=== PATIENT | male | born 1960 | race African-American/Black ===

== ENCOUNTER 2022-02-08 13:24 | Inpatient (IN) | payer MEDICARE, MEDICAID ==
[2022-02-08 14:51] VITALS: BMI 21.0
[2022-02-08] MEDS ORDERED: FLU VACC QS2022-23(6MOS UP)/PF 60 MCG/0.5 ML SYRINGE IM ONE (15:15)
[2022-02-08] MEDS ORDERED: Ondansetron ODT 4 MG TAB PO PRN (16:32)
[2022-02-08] MEDS ORDERED: Lorazepam 2 MG/ML VIAL IM PRN (16:32)
[2022-02-08] MEDS ORDERED: Multivit, Therapeutic 1 TAB PO SCH (17:00)
[2022-02-08] MEDS ORDERED: Folic Acid 1 MG TAB PO SCH (17:00)
[2022-02-08] MEDS ORDERED: Potassium Chloride 20 MEQ in Premix Bag 1 BAG IVPB SCH (17:15)
[2022-02-08] MEDS: Thiamine HCl 200 MG/2 ML VIAL SLOW IVP SCH (17:49)
[2022-02-08 18:24] LABS: Anion Gap 15 mmol/L (10-20); BUN (Urea Nitrogen) 25 mg/dL (8.4-25.7); Calc. Creatinine Clearance 99 mL/min (70-130); Calcium 8.2 mg/dL (7.8-10.44); Carbon Dioxide 27 mmol/L (22-29); Chloride 95 mmol/L (98-107); Estimated GFR 103; Glucose 103 mg/dL (70-105); Potassium 3.1 mmol/L (3.5-5.1); Sodium 134 mmol/L (136-145)
[2022-02-08] MEDS ORDERED: Potassium Chloride 20 MEQ TAB PO SCH ×2 (19:00→23:15)
[2022-02-08 19:07] LABS: Hemoglobin 5.3 g/dL (14.0-18.0); Platelet Count 119 thou/uL (130-400)
[2022-02-08 19:50] LABS: Troponin I 0.046 ng/mL (< 0.028)
[2022-02-08] MEDS: Lactated Ringer's 1,000 ML IV SCH (23:37)
[2022-02-09] MEDS ORDERED: Ibuprofen 200 MG TAB PO PRN (00:40)
[2022-02-09] MEDS ORDERED: Famotidine 20 MG TAB PO SCH (00:45)
[2022-02-09 05:00] LABS: ALT (SGPT) 31 U/L (8-55); AST (SGOT) 109 U/L (5-34); Albumin 2.5 g/dL (3.5-5.0); Alkaline Phosphatase 87 U/L (40-110); Anion Gap 12 mmol/L (10-20); BUN (Urea Nitrogen) 21 mg/dL (8.4-25.7); Bilirubin, Total 13.9 mg/dL (0.2-1.2); Calc. Creatinine Clearance 106 mL/min (70-130); Carbon Dioxide 27 mmol/L (22-29); Chloride 97 mmol/L (98-107); Estimated GFR 105; Globulin 4.9 g/dL (2.4-3.5); Glucose 97 mg/dL (70-105); Potassium 3.6 mmol/L (3.5-5.1); Protein, Total 7.4 g/dL (6.0-8.3); Sodium 132 mmol/L (136-145)
[2022-02-09 05:27] LABS: Band 10 % (5-11); Eosinophils 2 % (0-10); Hemoglobin 6.8 g/dL (14.0-18.0); Hypochromia SLIGHT = 6-15 cells (100X) (0-5/hpf); Lymphocytes 19 % (21-51); MDiff Complete? YES; Mean Corpuscular HGB CONC 32.4 g/dL (32.0-36.0); Mean Corpuscular Hemoglobin 28.7 pg (27.0-31.0); Mean Corpuscular Volume 88.5 fL (78.0-98.0); Mean Platelet Volume 8.2 fL (7.4-10.4); Monocytes 14 % (0-10); Neutrophil 55 % (42-75); Nucleated RBC 2 % (0); Platelet Count 96 thou/uL (130-400); Platelet Morphology Comment Appears Adequate; Polychromasia SLIGHT = 2-3 cells (100X) (0-2/hpf); RBC Distribution Width 17.4 % (11.5-14.5); Red Blood Cell (RBC) Count 2.36 mill/uL (4.70-6.10); Target Cells SLIGHT = 2-5 cells (100X) (0-1/hpf); White Blood Cell (WBC) Count 9.3 thou/uL (4.8-10.8)
[2022-02-09 08:34] LABS: Hemoglobin 7.2 g/dL (14.0-18.0); Platelet Count 98 thou/uL (130-400)
[2022-02-09] MEDS: Folic Acid 1 MG TAB PO SCH (09:51)
[2022-02-09] MEDS: Famotidine 20 MG TAB PO SCH ×2 (09:51→21:06)
[2022-02-09] MEDS: Multivit, Therapeutic 1 TAB PO SCH (09:51)
[2022-02-09] MEDS: Lactated Ringer's 1,000 ML IV SCH ×2 (09:53→17:06)
[2022-02-09 13:06] LABS: INR-International Normal Ratio 1.6; PTT 31.8 sec (22.9-36.1); Prothrombin Time 19.7 sec (12.0-14.7)
[2022-02-09] MEDS: Thiamine HCl 200 MG/2 ML VIAL SLOW IVP SCH (17:06)
[2022-02-09 21:05] LABS: Hemoglobin 7.6 g/dL (14.0-18.0)
[2022-02-09] MEDS ORDERED: Acetaminophen 325 MG TAB PO SCH (22:30)
[2022-02-10 05:37] LABS: Band 2 % (5-11); Eosinophils 6 % (0-10); Hemoglobin 7.7 g/dL (14.0-18.0); Lymphocytes 22 % (21-51); MDiff Complete? YES; Mean Corpuscular HGB CONC 32.6 g/dL (32.0-36.0); Mean Corpuscular Hemoglobin 28.6 pg (27.0-31.0); Mean Corpuscular Volume 87.5 fL (78.0-98.0); Mean Platelet Volume 7.7 fL (7.4-10.4); Monocytes 2 % (0-10); Neutrophil 67 % (42-75); Nucleated RBC 10 % (0); Ovalocytes SLIGHT = 2-5 cells (100X) (0-1/hpf); Platelet Count 98 thou/uL (130-400); Platelet Morphology Comment Appears Decreased; Polychromasia SLIGHT = 2-3 cells (100X) (0-2/hpf); RBC Distribution Width 17.5 % (11.5-14.5); Red Blood Cell (RBC) Count 2.71 mill/uL (4.70-6.10); Target Cells MODERATE= 6-15 cells (100X) (0-1/hpf); White Blood Cell (WBC) Count 9.2 thou/uL (4.8-10.8)
[2022-02-10] MEDS ORDERED: Acetaminophen 325 MG TAB PO SCH (06:00)
[2022-02-10 07:06] LABS: INR-International Normal Ratio 1.6; PTT 33.5 sec (22.9-36.1); Prothrombin Time 19.2 sec (12.0-14.7)
[2022-02-10 07:53] LABS: ALT (SGPT) 39 U/L (8-55); AST (SGOT) 125 U/L (5-34); Albumin 2.3 g/dL (3.5-5.0); Alkaline Phosphatase 98 U/L (40-110); Anion Gap 11 mmol/L (10-20); BUN (Urea Nitrogen) 13 mg/dL (8.4-25.7); Bilirubin, Direct 6.3 mg/dL (0.1-0.3); Bilirubin, Total 12.1 mg/dL (0.2-1.2); Calc. Creatinine Clearance 117 mL/min (70-130); Calcium 7.8 mg/dL (7.8-10.44); Carbon Dioxide 26 mmol/L (22-29); Chloride 97 mmol/L (98-107); Estimated GFR 108; Globulin 4.8 g/dL (2.4-3.5); Glucose 107 mg/dL (70-105); Protein, Total 7.1 g/dL (6.0-8.3); Sodium 131 mmol/L (136-145)
[2022-02-10] MEDS: Folic Acid 1 MG TAB PO SCH (08:43)
[2022-02-10] MEDS: Famotidine 20 MG TAB PO SCH ×2 (08:43→21:45)
[2022-02-10] MEDS: Multivit, Therapeutic 1 TAB PO SCH (08:43)
[2022-02-10] MEDS ORDERED: Potassium Chloride 20 MEQ TAB PO SCH (10:00)
[2022-02-10] MEDS: traMADol HCl 50 MG TAB PO PRN (11:53)
[2022-02-10] MEDS ORDERED: Morphine 4 MG/ML VIAL SLOW IVP PRN (13:55)
[2022-02-10] MEDS: Thiamine HCl 200 MG/2 ML VIAL SLOW IVP SCH (18:20)
[2022-02-11 07:19] LABS: Hemoglobin 7.2 g/dL (14.0-18.0); Mean Corpuscular HGB CONC 32.5 g/dL (32.0-36.0); Mean Corpuscular Hemoglobin 29.2 pg (27.0-31.0); Mean Platelet Volume 7.8 fL (7.4-10.4); Platelet Count 151 thou/uL (130-400); RBC Distribution Width 18.9 % (11.5-14.5); Red Blood Cell (RBC) Count 2.47 mill/uL (4.70-6.10); White Blood Cell (WBC) Count 13.1 thou/uL (4.8-10.8)
[2022-02-11 07:29] LABS: ALT (SGPT) 39 U/L (8-55); AST (SGOT) 120 U/L (5-34); Albumin 2.4 g/dL (3.5-5.0); Alkaline Phosphatase 111 U/L (40-110); Anion Gap 11 mmol/L (10-20); BUN (Urea Nitrogen) 9 mg/dL (8.4-25.7); Bilirubin, Direct 6.8 mg/dL (0.1-0.3); Bilirubin, Total 12.2 mg/dL (0.2-1.2); Calc. Creatinine Clearance 119 mL/min (70-130); Calcium 8.2 mg/dL (7.8-10.44); Carbon Dioxide 26 mmol/L (22-29); Chloride 95 mmol/L (98-107); Estimated GFR 109; Globulin 4.8 g/dL (2.4-3.5); Glucose 103 mg/dL (70-105); Protein, Total 7.2 g/dL (6.0-8.3); Sodium 129 mmol/L (136-145)
[2022-02-11 07:38] LABS: INR-International Normal Ratio 1.8; Prothrombin Time 21.4 sec (12.0-14.7)
[2022-02-11] MEDS: Famotidine 20 MG TAB PO SCH ×2 (08:09→20:47)
[2022-02-11] MEDS: Multivit, Therapeutic 1 TAB PO SCH (08:10)
[2022-02-11] MEDS: Folic Acid 1 MG TAB PO SCH (08:10)
[2022-02-11] MEDS: traMADol HCl 50 MG TAB PO PRN (08:13)
[2022-02-11 08:20] LABS: Band 7 % (5-11); Eosinophils 3 % (0-10); Lymphocytes 13 % (21-51); MDiff Complete? YES; Monocytes 3 % (0-10); Neutrophil 73 % (42-75); Platelet Morphology Comment Appears Adequate; Polychromasia MODERATE = 3-4 cells (100X) (0-2/hpf); Reactive Lymphocytes 1 % (0-10); Schistocytes SLIGHT = 2-5 cells (100X) (0-1/hpf); Target Cells MODERATE= 6-15 cells (100X) (0-1/hpf)
[2022-02-11 09:36] LABS: PTT 32.6 sec (22.9-36.1)
[2022-02-11 10:26] LABS: Magnesium 1.7 mg/dL (1.6-2.6)
[2022-02-11] MEDS ORDERED: Sodium Chloride 0.9% 1,000 ML IV SCH (11:45)
[2022-02-11 15:07] LABS: Hemoglobin 7.5 g/dL (14.0-18.0); Platelet Count 146 thou/uL (130-400)
[2022-02-11 15:14] LABS: Anion Gap 7 mmol/L (10-20); BUN (Urea Nitrogen) 10 mg/dL (8.4-25.7); Calc. Creatinine Clearance 109 mL/min (70-130); Calcium 8.5 mg/dL (7.8-10.44); Carbon Dioxide 28 mmol/L (22-29); Chloride 97 mmol/L (98-107); Estimated GFR 106; Glucose 106 mg/dL (70-105); Potassium 3.3 mmol/L (3.5-5.1); Sodium 129 mmol/L (136-145)
[2022-02-11] MEDS ORDERED: Phytonadione 5 MG TAB PO SCH (16:30)
[2022-02-11] MEDS ORDERED: Thiamine 100 MG TAB PO SCH (17:00)
[2022-02-11] MEDS ORDERED: Potassium Chloride 20 MEQ TAB PO SCH (17:00)
[2022-02-11] MEDS ORDERED: Magnesium 2 GM/50 ML(in water) 2 GM in Premix Bag 1 BAG IVPB SCH (17:00)
[2022-02-11 20:42] VITALS: BP 161/93; TEMP 98
[2022-02-12 06:50] LABS: Hemoglobin 7.2 g/dL (14.0-18.0); Mean Corpuscular HGB CONC 31.6 g/dL (32.0-36.0); Mean Corpuscular Hemoglobin 28.9 pg (27.0-31.0); Mean Corpuscular Volume 91.4 fL (78.0-98.0); Mean Platelet Volume 8.4 fL (7.4-10.4); Platelet Count 120 thou/uL (130-400); RBC Distribution Width 19.7 % (11.5-14.5); Red Blood Cell (RBC) Count 2.51 mill/uL (4.70-6.10); White Blood Cell (WBC) Count 12.3 thou/uL (4.8-10.8)
[2022-02-12 06:58] LABS: INR-International Normal Ratio 1.7; PTT 33.4 sec (22.9-36.1); Prothrombin Time 20.6 sec (12.0-14.7)
[2022-02-12 07:16] LABS: ALT (SGPT) 37 U/L (8-55); AST (SGOT) 102 U/L (5-34); Albumin 2.3 g/dL (3.5-5.0); Alkaline Phosphatase 124 U/L (40-110); Anion Gap 10 mmol/L (10-20); BUN (Urea Nitrogen) 9 mg/dL (8.4-25.7); Bilirubin, Direct 7.5 mg/dL (0.1-0.3); Calc. Creatinine Clearance 124 mL/min (70-130); Calcium 8.3 mg/dL (7.8-10.44); Carbon Dioxide 26 mmol/L (22-29); Chloride 96 mmol/L (98-107); Estimated GFR 110; Glucose 107 mg/dL (70-105); Magnesium 1.9 mg/dL (1.6-2.6); Potassium 3.5 mmol/L (3.5-5.1); Protein, Total 7.3 g/dL (6.0-8.3); Sodium 128 mmol/L (136-145)
[2022-02-12 07:26] LABS: HIV (1/2) Antibody/Antigen Non-Reactive (NonReactive); HIV 1/2 INDEX 0.21 S/CO (<1.00)
[2022-02-12 07:28] LABS: Band 13 % (5-11); Eosinophils 3 % (0-10); Lymphocytes 17 % (21-51); MDiff Complete? YES; Monocytes 11 % (0-10); Neutrophil 55 % (42-75); Platelet Morphology Comment Appears Decreased; Polychromasia SLIGHT = 2-3 cells (100X) (0-2/hpf); Reactive Lymphocytes 1 % (0-10)
[2022-02-12 07:41] LABS: Bilirubin, Total 12.4 mg/dL (0.2-1.2)
[2022-02-12] MEDS ORDERED: Potassium Chloride 20 MEQ TAB PO SCH (08:30)
[2022-02-12] MEDS: traMADol HCl 50 MG TAB PO PRN (08:34)
[2022-02-12] MEDS: Multivit, Therapeutic 1 TAB PO SCH (08:34)
[2022-02-12] MEDS: Famotidine 20 MG TAB PO SCH (08:35)
[2022-02-12] MEDS: Folic Acid 1 MG TAB PO SCH (08:35)
== END 2022-02-12 17:44 | disposition home or self-care (01) | DRG 813 ==
LOC: T4-B 14:37 → 2SW 22:00 → T4-B 02-10 21:00
PROVIDERS: ADMIT Emergency Medicine; ATTEND Emergency Medicine
PROC: 30233N1 Transfusion of Nonautologous Red Blood Cells into Peripheral Vein, Percutaneous Approach (ICD-10-PCS; principal; 2022-02-08)
DX: D69.6 Thrombocytopenia, unspecified (principal); K83.1 Obstruction of bile duct; D62 Acute posthemorrhagic anemia; I69.951 Hemiplegia and hemiparesis following unspecified cerebrovascular disease affecting right dominant side; E87.1 Hypo-osmolality and hyponatremia; Z20.822 Contact with and (suspected) exposure to COVID-19; F10.10 Alcohol abuse, uncomplicated; R29.6 Repeated falls; I10 Essential (primary) hypertension; M10.9 Gout, unspecified; E80.6 Other disorders of bilirubin metabolism; E87.6 Hypokalemia; E78.5 Hyperlipidemia, unspecified; K70.9 Alcoholic liver disease, unspecified; S20.219A Contusion of unspecified front wall of thorax, initial encounter; W19.XXXA Unspecified fall, initial encounter
CPT/HCPCS: 36415; 36430; 80053; 82105; 82248; 83735; 84155; 84165; 84484; 85025; 85610; 85730; 86850; 86900; 86901; 87389; J3411; J7050; J7120; P9016; P9035; U0003; U0005

== ENCOUNTER 2022-02-17 00:18 | Inpatient (IN) | payer MEDICARE, MEDICAID ==
[2022-02-17 01:19] VITALS: BMI 22.2
[2022-02-17] MEDS ORDERED: Morphine 4 MG/ML VIAL SLOW IVP PRN (02:16)
[2022-02-17] MEDS ORDERED: Acetaminophen 325 MG TAB PO PRN (03:02)
[2022-02-17] MEDS ORDERED: Acetaminophen 650 MG Suppository PR PRN (03:02)
[2022-02-17] MEDS ORDERED: Ondansetron ODT 4 MG TAB PO PRN ×2 (03:02→03:57)
[2022-02-17] MEDS ORDERED: Ondansetron PF 4 MG/2 ML Vial IVP PRN (03:02)
[2022-02-17] MEDS ORDERED: Lorazepam 2 MG/ML VIAL IM PRN (03:57)
[2022-02-17] MEDS ORDERED: Lorazepam 1 MG TAB PO PRN (03:57)
[2022-02-17] MEDS ORDERED: Electrolyte Replacement Protocol 1 EACH FS SCH (04:00)
[2022-02-17 05:37] LABS: Anisocytosis SLIGHT = 6-15 cells (100X) (0-5/hpf); Band 12 % (5-11); Eosinophils 2 % (0-10); Hemoglobin 6.2 g/dL (14.0-18.0); Lymphocytes 14 % (21-51); MDiff Complete? YES; Macrocytosis SLIGHT = 6-15 cells (100X) (0-5/hpf); Mean Corpuscular Hemoglobin 28.8 pg (27.0-31.0); Mean Corpuscular Volume 95.9 fl (78.0-98.0); Mean Platelet Volume 8.5 fL (7.4-10.4); Metamyelocyte 1 % (0-0); Monocytes 4 % (0-10); Neutrophil 67 % (42-75); Nucleated RBC 1 % (0); Platelet Count 141 thou/uL (130-400); Polychromasia SLIGHT = 2-3 cells (100X) (0-2/hpf); RBC Distribution Width 23.3 % (11.5-14.5); Red Blood Cell (RBC) Count 2.14 mill/uL (4.70-6.10); Target Cells MODERATE= 6-15 cells (100X) (0-1/hpf); White Blood Cell (WBC) Count 15.8 thou/uL (4.8-10.8)
[2022-02-17] MEDS: Lorazepam 1 MG TAB PO SCH ×4 (05:42→21:22)
[2022-02-17] MEDS: Thiamine HCl 200 MG/2 ML VIAL SLOW IVP SCH (05:43)
[2022-02-17 05:58] LABS: Magnesium 1.8 mg/dL (1.6-2.6); Phosphorus 3.3 mg/dL (2.3-4.7)
[2022-02-17 06:13] LABS: Anion Gap 13 mmol/L (10-20); BUN (Urea Nitrogen) 7 mg/dL (8.4-25.7); Calc. Creatinine Clearance 143 mL/min (70-130); Calcium 8.3 mg/dL (7.8-10.44); Carbon Dioxide 23 mmol/L (22-29); Chloride 101 mmol/L (98-107); Estimated GFR 113; Glucose 109 mg/dL (70-105); Potassium 3.6 mmol/L (3.5-5.1); Sodium 133 mmol/L (136-145)
[2022-02-17] MEDS ORDERED: Magnesium 2 GM/50 ML(in water) 2 GM in Premix Bag 1 BAG IVPB SCH (08:00)
[2022-02-17] MEDS ORDERED: FLU VACC QS2022-23(6MOS UP)/PF 60 MCG/0.5 ML SYRINGE IM ONE (09:00)
[2022-02-17] MEDS ORDERED: Ibuprofen 600 MG TAB PO PRN (10:21)
[2022-02-17] MEDS: Folic Acid 1 MG TAB PO SCH (10:51)
[2022-02-17] MEDS: Multivit, Therapeutic 1 TAB PO SCH (10:51)
[2022-02-17 11:10] LABS: Platelet Count 128 thou/uL (130-400)
[2022-02-17 11:32] LABS: EPI 157 sec (67-192)
[2022-02-17 18:01] LABS: Hemoglobin 8.3 g/dL (14.0-18.0); Mean Corpuscular HGB CONC 30.8 g/dL (32.0-36.0); Mean Corpuscular Hemoglobin 29.2 pg (27.0-31.0); Mean Corpuscular Volume 94.8 fl (78.0-98.0); Mean Platelet Volume 9.2 fL (7.4-10.4); Platelet Count 145 thou/uL (130-400); RBC Distribution Width 22.6 % (11.5-14.5); Red Blood Cell (RBC) Count 2.84 mill/uL (4.70-6.10); White Blood Cell (WBC) Count 16.7 thou/uL (4.8-10.8)
[2022-02-18] MEDS ORDERED: Lorazepam 1 MG TAB PO PRN (03:57)
[2022-02-18] MEDS: Lorazepam 1 MG TAB PO SCH ×2 (04:56→10:30)
[2022-02-18] MEDS: Thiamine HCl 200 MG/2 ML VIAL SLOW IVP SCH (04:56)
[2022-02-18 07:06] LABS: INR-International Normal Ratio 1.8; PTT 38.4 sec (22.9-36.1); Prothrombin Time 21.2 sec (12.0-14.7)
[2022-02-18 07:17] LABS: ALT (SGPT) 25 U/L (8-55); AST (SGOT) 90 U/L (5-34); Alkaline Phosphatase 126 U/L (40-110); Anion Gap 10 mmol/L (10-20); BUN (Urea Nitrogen) 9 mg/dL (8.4-25.7); Bilirubin, Total 16.4 mg/dL (0.2-1.2); Calc. Creatinine Clearance 143 mL/min (70-130); Calcium 8.3 mg/dL (7.8-10.44); Carbon Dioxide 22 mmol/L (22-29); Chloride 101 mmol/L (98-107); Estimated GFR 113; Globulin 5.9 g/dL (2.4-3.5); Glucose 94 mg/dL (70-105); Protein, Total 7.9 g/dL (6.0-8.3); Sodium 129 mmol/L (136-145)
[2022-02-18 07:19] LABS: Hemoglobin 7.1 g/dL (14.0-18.0); Mean Corpuscular HGB CONC 30.5 g/dL (32.0-36.0); Mean Corpuscular Hemoglobin 29.3 pg (27.0-31.0); Mean Corpuscular Volume 95.8 fl (78.0-98.0); Mean Platelet Volume 8.7 fL (7.4-10.4); Platelet Count 136 thou/uL (130-400); RBC Distribution Width 22.9 % (11.5-14.5); Red Blood Cell (RBC) Count 2.43 mill/uL (4.70-6.10); White Blood Cell (WBC) Count 15.9 thou/uL (4.8-10.8)
[2022-02-18] MEDS: Multivit, Therapeutic 1 TAB PO SCH (08:08)
[2022-02-18] MEDS: Folic Acid 1 MG TAB PO SCH (08:08)
[2022-02-18 08:45] LABS: Band 14 % (5-11); Eosinophils 2 % (0-10); Hypochromia MODERATE=16-30 cells (100X) (0-5/hpf); Lymphocytes 17 % (21-51); MDiff Complete? YES; Monocytes 4 % (0-10); Neutrophil 62 % (42-75); Nucleated RBC 1 % (0); Platelet Morphology Comment Appears Adequate; Polychromasia MODERATE = 3-4 cells (100X) (0-2/hpf); Promyelocytes 1 % (0-0); Rouleaux Formation SLIGHT = 1-5 cells (100X) (None Seen); Target Cells MODERATE= 6-15 cells (100X) (0-1/hpf)
[2022-02-18 21:18] VITALS: BP 136/84; TEMP 98.7
[2022-02-19] MEDS ORDERED: Lorazepam 1 MG TAB PO PRN (03:57)
[2022-02-19] MEDS ORDERED: Lorazepam 0.5 MG TAB PO SCH (04:00)
[2022-02-20] MEDS ORDERED: Lorazepam 0.5 MG TAB PO PRN (03:57)
[2022-02-20] MEDS ORDERED: Thiamine 100 MG TAB PO SCH (09:00)
== END 2022-02-18 22:10 | disposition home or self-care (01) | DRG 605 ==
LOC: T4-B 00:37
PROVIDERS: ADMIT Student in an Organized Health Care Education/Training Program; ATTEND Student in an Organized Health Care Education/Training Program
PROC: 30233N1 Transfusion of Nonautologous Red Blood Cells into Peripheral Vein, Percutaneous Approach (ICD-10-PCS; principal; 2022-02-17)
DX: S20.211A Contusion of right front wall of thorax, initial encounter (principal); I69.951 Hemiplegia and hemiparesis following unspecified cerebrovascular disease affecting right dominant side; J90 Pleural effusion, not elsewhere classified; R18.8 Other ascites; E87.1 Hypo-osmolality and hyponatremia; W19.XXXA Unspecified fall, initial encounter; F10.20 Alcohol dependence, uncomplicated; R29.6 Repeated falls; D64.9 Anemia, unspecified; E80.6 Other disorders of bilirubin metabolism; K74.60 Unspecified cirrhosis of liver; Z79.899 Other long term (current) drug therapy
CPT/HCPCS: 36415; 36430; 80048; 80053; 83735; 84100; 85025; 85576; 85610; 85730; 86850; 86900; 86901; J2270; J3411; J3475; P9016; U0003; U0005